=== PATIENT | female | born 1950 ===

== ENCOUNTER 2018-05-01 18:19 | Observation (INO) | payer MEDICARE ==
[2018-05-01 18:20] VITALS: BMI 32.1
[2018-05-01] MEDS ORDERED: Famotidine 20mg/50ml 20 MG/50 ML BAG IVPB ONE (19:17)
[2018-05-01] MEDS ORDERED: Famotidine 20mg/50ml 20 MG/50 ML BAG IVPB STA (19:24)
[2018-05-01 19:46] LABS: BASO % 0.3 % (0.0-2.0); HEMOGLOBIN 12.4 g/dL (12.0-16.0); LYMPH # 0.8 K/uL (1.0-4.3); LYMPH % 6.9 % (20.0-40.0); MEAN CELL VOLUME 90.3 fl (81.0-99.0); MEAN CORPUSCULAR HEMOGLOBIN 31.4 pg (27.0-31.0); MEAN CORPUSCULAR HGB CONC 34.8 g/dL (33.0-37.0); MEAN PLATELET VOLUME 9.7 fl (7.2-11.7); MONO # 0.7 K/uL (0.0-0.8); MONO % 6.6 % (0.0-10.0); NEUT # 9.6 K/uL (1.8-7.0); NEUT % 86.2 % (50.0-75.0); PLATELET COUNT 236 K/uL (130-400); RBC 3.95 Mil/uL (3.80-5.20)
[2018-05-01 19:54] LABS: CALCIUM 9.1 mg/dL (8.4-10.2); GFR AFRICAN-AMERICAN > 60; GFR NON-AFRICAN AMERICAN > 60; LIPASE 30 U/L (23-300)
[2018-05-01 19:54] LABS: VENOUS BLOOD GAS BASE EXCESS 7.8 mmol/L (0.0-2.0); VENOUS BLOOD GAS PCO2 49 mmHg (40-60); VENOUS BLOOD GAS PO2 29 mm/Hg (30-55); VENOUS BLOOD PH 7.44 (7.32-7.43)
--- NOTE | 2018-05-01 19:55 | ED PDOC ---
HPI: General Adult Time Seen by Provider: 05/01/18 18:47 Chief Complaint (Nursing): Flu-like Symptoms Chief Complaint (Provider): Fever and sore throat and epigastric pain History Per: Patient History/Exam Limitations: no limitations Onset/Duration Of Symptoms: Days (yesterday) Current Symptoms Are (Timing): Still Present Additional Complaint(s): 68 year old female presented to the ED complaining of sore throat, fever, and epigastric pain since yesterday. Patient states she has been taking advil with no relief with last dose of yesterday. Denies CP, SOB, cough, rash, diarrhea, sick contacts, and recent travel. PCP: Brent Hassan Past Medical History Reviewed: Historical Data, Nursing Documentation, Vital Signs Vital Signs: Last Vital Signs Temp 97.7 F 05/02/18 09:02 Pulse 101 H 05/02/18 09:11 Resp 20 05/02/18 09:02 BP 138/64 05/02/18 09:11 Pulse Ox 98 05/02/18 09:02 - Medical History PMH: Arthritis (spine,neck), Diabetes, Gastritis, HTN, Hypercholesterolemia Denies: Chronic Kidney Disease - Surgical History Surgical History: - Family History Family History: States: Unknown Family Hx - Home Medications Home Medications: Ambulatory Orders Medication Instructions Recorded Metoprolol Succinate XL [Toprol XL] 100 mg PO DAILY 03/15/18 Omeprazole 40 mg PO DAILY 03/15/18 metFORMIN [glucOPHAGE] 500 mg PO DAILY 03/15/18 Amoxicillin [Amoxil 500 mg Cap] 500 mg PO Q12 #20 cap 05/02/18 - Allergies Allergies/Adverse Reactions: Allergies Allergy/AdvReac Type Severity Reaction Status Date / Time No Known Allergies Allergy Verified 08/08/15 16:28 Review of Systems ROS Statement: Except As Marked, All Systems Reviewed And Found Negative Constitutional: Positive for: Fever ENT: Positive for: Throat Pain (sore throat) Cardiovascular: Negative for: Chest Pain Respiratory: Negative for: Cough, Shortness of Breath Gastrointestinal: Positive for: Abdominal Pain (epigastric pain). Negative for : Diarrhea Skin: Negative for: Rash Physical Exam - Reviewed Nursing Documentation Reviewed: Yes Vital Signs Reviewed: Yes - Physical Exam Appears: Positive for: Non-toxic, No Acute Distress Head Exam: Positive for: ATRAUMATIC, NORMOCEPHALIC Skin: Positive for: Normal Color, Warm, Dry. Negative for: Rash Eye Exam: Positive for: Normal appearance ENT: Positive for: Pharyngeal Erythema (and exudate), Tonsillar Exudate (and erythema) Neck: Positive for: Normal, Painless ROM Cardiovascular/Chest: Positive for: Regular Rate, Rhythm. Negative for: Murmur Respiratory: Positive for: Normal Breath Sounds. Negative for: Wheezing, Respiratory Distress Gastrointestinal/Abdominal: Positive for: Normal Exam, Soft. Negative for: Tenderness Extremity: Positive for: Normal ROM Neurologic/Psych: Positive for: Alert, Oriented (x3). Negative for: Motor/ Sensory Deficits - Laboratory Results Result Diagrams: 05/02/18 06:45 05/02/18 06:45 - ECG ECG: Positive for: Interpreted By Me, Viewed By Me ECG Rhythm: Positive for: Sinus Rhythm. Negative for: ST/T Changes Rate: 84 O2 Sat by Pulse Oximetry: 99 (RA) Pulse Ox Interpretation: Normal Medical Decision Making Medical Decision Making: Initial Impression: Sore throat, fever, epigastric pain Initial Plan: VBG shock panel ECG CMP Lipase Troponin CBC Chest X-ray Tylenol 975mg PO Famotidine 20mg in 50mL IV Blood culture Influenza A B Stat Rapid strep Urinalysis US Abd Scribe Attestation: Documented by Fabricio Pollard acting as a scribe for Leander PHILLIPS Provider Scribe Attestation: All medical record entries made by the Scribe were at my direction and personally dictated by me. I have reviewed the chart and agree that the record accurately reflects my personal performance of the history, physical exam, medical decision making, and the department course for this patient. I have also personally directed, reviewed, and agree with the discharge instructions and disposition. Disposition - Clinical Impression Clinical Impression: Sore throat, Abdominal pain - Patient ED Disposition Is Patient to be Admitted: Transfer of Care (Signed out to [facility] BENAVIDES pending diagnostics and re-evaluation) - Disposition Disposition Time: 20:00 Condition: STABLE
[2018-05-01 19:56] LABS: SQUAMOUS EPITHIAL 3 /hpf (0-5); URINE BACTERIA OCC (<OCC); URINE BILIRUBIN NEGATIVE (NEGATIVE); URINE BLOOD SMALL (NEGATIVE); URINE CLARITY CLOUDY (Clear); URINE COLOR YELLOW (YELLOW); URINE GLUCOSE (UA) NEG (Normal); URINE LEUKOCYTE ESTERASE NEG Leu/uL (Negative); URINE PROTEIN NEGATIVE (NEGATIVE); URINE UROBILINOGEN 0.2-1.0 mg/dL (0.2-1.0); WHITE BLOOD COUNT 11.1 K/uL (4.8-10.8)
[2018-05-01 20:11] LABS: ALB/GLOB RATIO 0.9 (1.0-2.1); ALBUMIN 3.8 g/dL (3.5-5.0); ALT/SGPT 19 U/L (9-52); AST/SGOT 44 U/L (14-36); BLOOD UREA NITROGEN 13 mg/dl (7-17)
[2018-05-01 20:55] LABS: BANDS 4 % (0-2); LYMPHOCYTE 7 % (20-50); MONOCYTE 6 % (0-10); NEUTROPHIL 83 % (42-75); PLATELET ESTIMATE NORMAL (NORMAL); TOTAL CELLS COUNTED 100
--- NOTE | 2018-05-02 02:21 | ED PDOC ---
- Laboratory Results Result Diagrams: 05/01/18 19:20 05/01/18 19:20 - ECG O2 Sat by Pulse Oximetry: 99 Pulse Ox Interpretation: Normal Medical Decision Making Medical Decision Makin yo female presents to ER for evaluation of sore throat and epigastric abdominal pain. On re-evaluation patient continues to have epigastric pain. US with borderline dilated biliary duct on US and MRCP recommended. PMD. Dr. Bruner Case discussed with Dr. Rosales. Disposition - POA Present On Arrival: None - Disposition Disposition: Routine/Home Disposition Time: 02:21 Condition: STABLE
[2018-05-02] MEDS ORDERED: Oxycodone/Acetaminophen 5/325 mg Tab PO PRN (02:27)
[2018-05-02] MEDS ORDERED: Lactated Ringer's 1,000 ML IV SCH (02:30)
[2018-05-02] MEDS ORDERED: Insulin Lispro (humaLOG) 100 Units/ml Inj SC SCH (02:30)
--- NOTE | 2018-05-02 02:30 | CP.PCM.HP ---
History of Present Illness - History of Present Illness History of Present Illness: CC: abd/epigastric pain, strep pharyngitis HPI: This is a 68 y/o female with MHx significant for HTN, HLD, DM2, and gastritis among other conditions who presented initially with sore throat/fever and was dx'ed with strep pharyngitis. She also c/o epigastric pain and nausea from yesterday. Denies diarrhea, denies vomiting. Patient had only taking advil for pain, but symptoms not improved. PCP: Burke MHx: DM2, gastritis, HTN, HLD, osteoarthritis SHx: C section Allergies: NKDA Medications: As per med rec Family Hx: Reviewed, no relevant findings Social Hx: Lives with family, no tobacco, no EtOH Surrogate dec mkr: , info on chart Present on Admission - Present on Admission Any Indicators Present on Admission: No Past Patient History - Past Medical History & Family History Past Medical History?: Yes - Past Social History Smoking Status: Never Smoked - CARDIAC Hx Hypercholesterolemia: Yes Hx Hypertension: Yes - PULMONARY Hx Respiratory Disorders: No - NEUROLOGICAL Hx Neurological Disorder: No - HEENT Hx HEENT Problems: No - RENAL Hx Chronic Kidney Disease: No - ENDOCRINE/METABOLIC Hx Endocrine Disorders: Yes Hx Diabetes Mellitus Type 2: Yes - HEMATOLOGICAL/ONCOLOGICAL Hx Blood Disorders: No - INTEGUMENTARY Hx Dermatological Problems: No - MUSCULOSKELETAL/RHEUMATOLOGICAL Hx Arthritis: Yes (spine,neck) - GASTROINTESTINAL Hx Gastritis: Yes - GENITOURINARY/GYNECOLOGICAL Hx Genitourinary Disorders: No - PSYCHIATRIC Hx Psychophysiologic Disorder: No Hx Substance Use: No - SURGICAL HISTORY Hx Surgeries: Yes Hx Arthroscopy: Yes (right knee) Other/Comment: bladder lift - ANESTHESIA Hx Anesthesia: Yes Hx Anesthesia Reactions: No Hx Malignant Hyperthermia: No Meds Allergies/Adverse Reactions: Allergies Allergy/AdvReac Type Severity Reaction Status Date / Time No Known Allergies Allergy Verified 08/08/15 16:28 Physical Exam - Constitutional Appears: No Acute Distress - Head Exam Head Exam: ATRAUMATIC, NORMOCEPHALIC - Eye Exam Eye Exam: EOMI, PERRL - ENT Exam ENT Exam: Mucous Membranes Moist - Neck Exam Neck exam: Positive for: Full Rom - Respiratory Exam Respiratory Exam: Clear to Auscultation Bilateral, NORMAL BREATHING PATTERN - Cardiovascular Exam Cardiovascular Exam: REGULAR RHYTHM, +S1, +S2 - GI/Abdominal Exam GI & Abdominal Exam: Normal Bowel Sounds, Tenderness - Extremities Exam Extremities exam: Positive for: full ROM, normal inspection - Neurological Exam Neurological exam: Alert, CN II-XII Intact, Oriented x3 - Psychiatric Exam Psychiatric exam: Normal Affect, Normal Mood - Skin Skin Exam: Dry, Warm Results - Vital Signs Recent Vital Signs: Last Vital Signs Temp 98.1 F 05/01/18 22:07 Pulse 71 05/01/18 22:07 Resp 18 05/01/18 22:07 BP 109/64 05/01/18 22:07 Pulse Ox 99 05/02/18 02:21 - Labs Result Diagrams: 05/01/18 19:20 05/01/18 19:20 Labs: Laboratory Results - last 24 hr 05/01/18 05/01/18 05/01/18 19:20 19:20 19:20 WBC RBC Hgb Hct MCV MCH MCHC RDW Plt Count MPV Neut % (Auto) Lymph % (Auto) [place] % (Auto) Eos % (Auto) Baso % (Auto) Neut # (Auto) Lymph # (Auto) [place] # (Auto) Eos # (Auto) Baso # (Auto) Neutrophils % (Manual) Band Neutrophils % Lymphocytes % (Manual) Monocytes % (Manual) Platelet Estimate RBC Morphology pO2 VBG pH VBG pCO2 VBG HCO3 VBG Total CO2 VBG O2 Sat (Calc) VBG Base Excess VBG Potassium Glucose Lactate FiO2 Sodium Potassium Chloride Carbon Dioxide Anion Gap BUN Creatinine Est GFR ( Amer) Est GFR (Non-Af Amer) Random Glucose Calcium Total Bilirubin AST ALT Alkaline Phosphatase Troponin I Total Protein Albumin Globulin Albumin/Globulin Ratio Lipase Venous Blood Potassium Urine Color Yellow Urine Clarity Cloudy Urine pH 7.0 Ur Specific [place] 1.014 Urine Protein Negative Urine Glucose (UA) Neg Urine Ketones 20 Urine Blood Small Urine Nitrate Negative Urine Bilirubin Negative Urine Urobilinogen 0.2-1.0 Ur Leukocyte Esterase Neg Urine RBC (Auto) 10 H Urine Microscopic WBC 2 Ur Squamous Epith Cells 3 Urine Bacteria Occ H Influenza Typ A,B (EIA) Negative for flu a/b Grp A Beta Strep Ag Positive H 05/01/18 05/01/18 05/01/18 19:20 19:20 19:48 WBC 11.1 H D RBC 3.95 Hgb 12.4 Hct 35.6 MCV 90.3 D MCH 31.4 H MCHC 34.8 RDW 13.0 Plt Count 236 MPV 9.7 Neut % (Auto) 86.2 H Lymph % (Auto) 6.9 L [place] % (Auto) 6.6 Eos % (Auto) 0.0 Baso % (Auto) 0.3 Neut # (Auto) 9.6 H Lymph # (Auto) 0.8 L [place] # (Auto) 0.7 Eos # (Auto) 0.0 Baso # (Auto) 0.0 Neutrophils % (Manual) 83 H Band Neutrophils % 4 H Lymphocytes % (Manual) 7 L Monocytes % (Manual) 6 Platelet Estimate Normal RBC Morphology Normal pO2 29 L VBG pH 7.44 H VBG pCO2 49 VBG HCO3 29.9 VBG Total CO2 34.8 H VBG O2 Sat (Calc) 59.1 VBG Base Excess 7.8 H VBG Potassium 3.2 L Glucose 141 H Lactate 1.0 FiO2 21.0 Sodium 133 133.0 Potassium 3.7 Chloride 94 L 95.0 L Carbon Dioxide 29 Anion Gap 14 BUN 13 Creatinine 0.6 L Est GFR ( Amer) > 60 Est GFR (Non-Af Amer) > 60 Random Glucose 126 H Calcium 9.1 Total Bilirubin 1.0 AST 44 H ALT 19 Alkaline Phosphatase 91 Troponin I < 0.0120 Total Protein 7.9 Albumin 3.8 Globulin 4.1 H Albumin/Globulin Ratio 0.9 L Lipase 30 Venous Blood Potassium 3.2 L Urine Color Urine Clarity Urine pH Ur Specific [place] Urine Protein Urine Glucose (UA) Urine Ketones Urine Blood Urine Nitrate Urine Bilirubin Urine Urobilinogen Ur Leukocyte Esterase Urine RBC (Auto) Urine Microscopic WBC Ur Squamous Epith Cells Urine Bacteria Influenza Typ A,B (EIA) Grp A Beta Strep Ag Assessment & Plan (1) Dilated bile duct Assessment and Plan: 68 y/o female with abd pain, ductal dilation, and also strep pharyngitis. 1) Abd pain, bile duct dilation -NPO, IVF for now -MRCP in AM -GI consult in AM -Pain/nausea mgmt 2) Strep pharyngitis -Amoxicillin 500 mg PO q12h 3) DVT PPx -- SQ Lovenox Status: Acute (2) Strep pharyngitis Status: Acute (3) DVT prophylaxis Status: Acute (4) Abdominal pain Status: Acute
[2018-05-02 05:19] VITALS: RESP 20
[2018-05-02 07:26] LABS: HEMOGLOBIN 11.9 g/dL (12.0-16.0); MEAN CORPUSCULAR HEMOGLOBIN 30.9 pg (27.0-31.0); RBC 3.86 Mil/uL (3.80-5.20); RED CELL DISTRIBUTION WIDTH 12.8 % (11.5-14.5); WHITE BLOOD COUNT 9.1 K/uL (4.8-10.8)
[2018-05-02 07:40] LABS: ALBUMIN 3.5 g/dL (3.5-5.0); ALT/SGPT 25 U/L (9-52); AST/SGOT 22 U/L (14-36); BLOOD UREA NITROGEN 9 mg/dl (7-17); GFR AFRICAN-AMERICAN > 60; GFR NON-AFRICAN AMERICAN > 60
--- NOTE | 2018-05-02 08:49 | CP.PCM.DIS ---
Provider - Provider Date of Admission: 05/02/18 02:13 Attending physician: Brandi Rosales MD Primary care physician: Dr. Turk Consults: None Time Spent in preparation of Discharge (in minutes): 10 Hospital Course - Lab Results Lab Results: Most Recent Lab Values WBC 9.1 K/uL (4.8-10.8) 05/02/18 06:45 RBC 3.86 Mil/uL (3.80-5.20) 05/02/18 06:45 Hgb 11.9 g/dL (12.0-16.0) L 05/02/18 06:45 Hct 35.1 % (34.0-47.0) 05/02/18 06:45 MCV 91.0 fl (81.0-99.0) 05/02/18 06:45 MCH 30.9 pg (27.0-31.0) 05/02/18 06:45 MCHC 34.0 g/dL (33.0-37.0) 05/02/18 06:45 RDW 12.8 % (11.5-14.5) 05/02/18 06:45 Plt Count 172 K/uL (130-400) 05/02/18 06:45 MPV 9.7 fl (7.2-11.7) 05/01/18 19:20 Neut % (Auto) 86.2 % (50.0-75.0) H 05/01/18 19:20 Lymph % (Auto) 6.9 % (20.0-40.0) L 05/01/18 19:20 [place] % (Auto) 6.6 % (0.0-10.0) 05/01/18 19:20 Eos % (Auto) 0.0 % (0.0-4.0) 05/01/18 19:20 Baso % (Auto) 0.3 % (0.0-2.0) 05/01/18 19:20 Neut # (Auto) 9.6 K/uL (1.8-7.0) H 05/01/18 19:20 Lymph # (Auto) 0.8 K/uL (1.0-4.3) L 05/01/18 19:20 [place] # (Auto) 0.7 K/uL (0.0-0.8) 05/01/18 19:20 Eos # (Auto) 0.0 K/uL (0.0-0.7) 05/01/18 19:20 Baso # (Auto) 0.0 K/uL (0.0-0.2) 05/01/18 19:20 Neutrophils % (Manual) 83 % (42-75) H 05/01/18 19:20 Band Neutrophils % 4 % (0-2) H 05/01/18 19:20 Lymphocytes % (Manual) 7 % (20-50) L 05/01/18 19:20 Monocytes % (Manual) 6 % (0-10) 05/01/18 19:20 Platelet Estimate Normal (NORMAL) 05/01/18 19:20 RBC Morphology Normal (NORMAL) 05/01/18 19:20 pO2 29 mm/Hg (30-55) L 05/01/18 19:48 VBG pH 7.44 (7.32-7.43) H 05/01/18 19:48 VBG pCO2 49 mmHg (40-60) 05/01/18 19:48 VBG HCO3 29.9 mmol/L 05/01/18 19:48 VBG Total CO2 34.8 mmol/L (22-28) H 05/01/18 19:48 VBG O2 Sat (Calc) 59.1 % (40-65) 05/01/18 19:48 VBG Base Excess 7.8 mmol/L (0.0-2.0) H 05/01/18 19:48 VBG Potassium 3.2 mmol/L (3.6-5.2) L 05/01/18 19:48 Sodium 133.0 mmol/L (132-148) 05/01/18 19:48 Chloride 95.0 mmol/L (98-107) L 05/01/18 19:48 Glucose 141 mg/dL (65-105) H 05/01/18 19:48 Lactate 1.0 mmol/L (0.7-2.1) 05/01/18 19:48 FiO2 21.0 % 05/01/18 19:48 Sodium 139 mmol/l (132-148) 05/02/18 06:45 Potassium 3.0 MMOL/L (3.6-5.0) L 05/02/18 06:45 Chloride 97 mmol/L (98-107) L 05/02/18 06:45 Carbon Dioxide 30 mmol/L (22-30) 05/02/18 06:45 Anion Gap 15 (10-20) 05/02/18 06:45 BUN 9 mg/dl (7-17) 05/02/18 06:45 Creatinine 0.5 mg/dl (0.7-1.2) L 05/02/18 06:45 Est GFR ( Amer) > 60 05/02/18 06:45 Est GFR (Non-Af Amer) > 60 05/02/18 06:45 POC Glucose (mg/dL) 102 mg/dL (65-110) 05/02/18 05:00 Random Glucose 99 mg/dL (65-105) 05/02/18 06:45 Calcium 9.0 mg/dL (8.4-10.2) 05/02/18 06:45 Total Bilirubin 0.7 mg/dl (0.2-1.3) 05/02/18 06:45 AST 22 U/L (14-36) 05/02/18 06:45 ALT 25 U/L (9-52) 05/02/18 06:45 Alkaline Phosphatase 95 U/L (38-126) 05/02/18 06:45 Troponin I < 0.0120 ng/mL (0.00-0.120) 05/01/18 19:20 Total Protein 7.1 G/DL (6.3-8.2) 05/02/18 06:45 Albumin 3.5 g/dL (3.5-5.0) 05/02/18 06:45 Globulin 3.6 gm/dL (2.2-3.9) 05/02/18 06:45 Albumin/Globulin Ratio 1.0 (1.0-2.1) 05/02/18 06:45 Lipase 30 U/L (23-300) 05/01/18 19:20 Venous Blood Potassium 3.2 mmol/L (3.6-5.2) L 05/01/18 19:48 Urine Color Yellow (YELLOW) 05/01/18 19:20 Urine Clarity Cloudy (Clear) 05/01/18 19:20 Urine pH 7.0 (5.0-8.0) 05/01/18 19:20 Ur Specific [place] 1.014 (1.003-1.030) 05/01/18 19:20 Urine Protein Negative mg/dL (NEGATIVE) 05/01/18 19:20 Urine Glucose (UA) Neg mg/dL (Normal) 05/01/18 19:20 Urine Ketones 20 mg/dL (NEGATIVE) 05/01/18 19:20 Urine Blood Small (NEGATIVE) 05/01/18 19:20 Urine Nitrate Negative (NEGATIVE) 05/01/18 19:20 Urine Bilirubin Negative (NEGATIVE) 05/01/18 19:20 Urine Urobilinogen 0.2-1.0 mg/dL (0.2-1.0) 05/01/18 19:20 Ur Leukocyte Esterase Neg Brett/uL (Negative) 05/01/18 19:20 Urine RBC (Auto) 10 /hpf (0-3) H 05/01/18 19:20 Urine Microscopic WBC 2 /hpf (0-5) 05/01/18 19:20 Ur Squamous Epith Cells 3 /hpf (0-5) 05/01/18 19:20 Urine Bacteria Occ (<OCC) H 05/01/18 19:20 Influenza Typ A,B (EIA) Negative for flu a/b (NEGATIVE) 05/01/18 19:20 Grp A Beta Strep Ag Positive (NEGATIVE) H 05/01/18 19:20 - Hospital Course Hospital Course: 68 y/o female with MHx significant for HTN, HLD, DM2, and gastritis among other conditions presented initially with sore throat/fever and was dx'ed with strep pharyngitis.Her grandchild was diagnosed with strep throat . She also c/o epigastric pain and nausea from yesterday. Denies diarrhea, denies vomiting. Patient had only taken advil for pain, but symptoms not improved.She was started on amoxicillin for strep throat and placed on respiratory isolation . Abdominal US in the ER initilally was read as possible CBD dilatation but official read showed no CBD dilatation and LFT-s and Bilirubin all normal . Patient was given Protonix and abdominal pain resolved At present hemodynamically stable, afebrile with no abdominal pain , nausea or vomiting . Will discharge patient home in stable conditions.Will prescribe Amoxicillin 500 mg po Q12 for 10 days for acute streptococal pharingitis. Patient has no issues swallowing and physical exam showed no abscess Advised patient to avoid NSAID or take them with food Continue Protonix for gastritis Follow upw ith PMD Dx 1. Acute Group A streptococcal pharyngitis will treat with [id number] mg po q12 for 10 days 2. Gastritis-- avoid NSAIDs. Protonix 40 mg po daily 3.Hypertension - chronic , controlled 4. DM type II- resume home meds 5. Obesity BMI 34 6. Hypokalemia- replaced with Kcl Po Discharge Exam - Head Exam Head Exam: ATRAUMATIC, NORMOCEPHALIC - Eye Exam Eye Exam: EOMI, Normal appearance, PERRL Pupil Exam: NORMAL ACCOMODATION - ENT Exam ENT Exam: Normal Exam, Normal Oropharynx Additional comments: no abscess - Neck Exam Neck exam: Full Rom, Normal Inspection - Respiratory Exam Respiratory Exam: Clear to PA & Lateral, NORMAL BREATHING PATTERN. absent: Rales, Rhonchi, Wheezes - Cardiovascular Exam Cardiovascular Exam: REGULAR RHYTHM, RRR, +S1, +S2. absent: JVD - GI/Abdominal Exam GI & Abdominal Exam: Normal Bowel Sounds, Soft. absent: Distended, Guarding, Rebound, Tenderness - Rectal Exam Rectal Exam: Deferred - Extremities Exam Extremities exam: normal capillary refill, normal inspection, pedal pulses present - Back Exam Back exam: NORMAL INSPECTION - Neurological Exam Neurological exam: Alert - Skin Skin Exam: Dry, Intact, Normal Color, Warm Discharge Plan - Discharge Medications Prescriptions: Amoxicillin [Amoxil 500 mg Cap] 500 mg PO Q12 #20 cap - Follow Up Plan Condition: STABLE Disposition: HOME/ ROUTINE Patient education suggested?: Yes Instructions: Strep Throat (DC) Referrals: Brent Turk MD [Family Provider] -
[2018-05-02] MEDS ORDERED: Pantoprazole 40 mg EC Tab PO SCH (09:00)
[2018-05-02] MEDS ORDERED: Metoprolol Succinate 100 mg XL Tab PO SCH (09:00)
[2018-05-02] MEDS ORDERED: Enoxaparin 40 mg Syringe SC SCH (09:00)
[2018-05-02 09:03] VITALS: BP 138/64; TEMP 97.7
--- NOTE | 2018-05-02 09:03 | RAD ---
HISTORY: epigastric pain COMPARISON: No prior. FINDINGS: LUNGS: No active pulmonary disease. PLEURA: No significant pleural effusion identified, no pneumothorax apparent. CARDIOVASCULAR: Normal. OSSEOUS STRUCTURES: No significant abnormalities. VISUALIZED UPPER ABDOMEN: Normal. OTHER FINDINGS: Minimal nonspecific elevation right hemidiaphragm. IMPRESSION: No acute infiltrate bilaterally. No acute cardiovascular disease. Minimal elevation the right hemidiaphragm is noted.
[2018-05-02] MEDS ORDERED: Potassium Chloride 20 mEq/15 ml LIQ UD PO ONE (09:30)
[2018-05-02 10:13] VITALS: PULSE 84; O2SAT 99
--- NOTE | 2018-05-02 16:59 | US ---
HISTORY: epigastric abdominal pain COMPARISON: None. TECHNIQUE: Sonographic evaluation of the abdomen. FINDINGS: LIVER: Measures 13.1 cm. Normal echogenicity of the liver parenchyma. No mass. No intrahepatic bile duct dilatation. GALLBLADDER: Unremarkable. No gallstones. COMMON BILE DUCT: Measures 7.1 mm. No choledocholithiasis. PANCREAS: The tail of the pancreas is obscured by overlying bowel gas with remainder unremarkable. RIGHT KIDNEY: Measures 9.8cm. Normal echogenicity. No calculus, mass, or hydronephrosis. LEFT KIDNEY: Measures 11.2cm. Normal echogenicity. No calculus, mass, or hydronephrosis. SPLEEN: Normal in size and contour, measuring 12.5 cm. No mass. AORTA: No aneurysmal dilatation. IVC: Unremarkable. OTHER FINDINGS: None. IMPRESSION: Partial imaging of the pancreas due to overlying bowel gas. Borderline dilatation of the common bile duct with an unremarkable gallbladder.
--- NOTE | 2018-05-03 11:34 | CARD ---
APPROVED REPORT EKG Measurement Heart [id number] <Conclusion> Normal sinus rhythm Nonspecific ST abnormality Abnormal ECG
== END 2018-05-02 13:50 | disposition home or self-care (01) ==
LOC: H.ER 18:19 → H.ERHOLD 05-02 02:13 → H.MEDSURG1 05-02 05:17
PROVIDERS: ADMIT Internal Medicine; ATTEND Internal Medicine
DX: J02.0 Streptococcal pharyngitis (principal); K29.70 Gastritis, unspecified, without bleeding; I10 Essential (primary) hypertension; E11.9 Type 2 diabetes mellitus without complications; E66.9 Obesity, unspecified; Z68.34 Body mass index [BMI] 34.0-34.9, adult; E87.6 Hypokalemia; E78.00 Pure hypercholesterolemia, unspecified; E78.5 Hyperlipidemia, unspecified; R10.9 Unspecified abdominal pain
CPT/HCPCS: 36415; 71045; 76700; 80053; 81003; 82803; 82948; 83690; 84484; 85025; 85027; 87040; 87430; 87804; 93005; 99285; G0378; J1650; J7120